=== PATIENT | male | born 1995 | race Caucasian/White ===

== ENCOUNTER 2018-10-09 09:34 | Emergency (ER) | payer OTHER ==
[~2018-10-09] VITALS: Ht 182.9 cm; Wt 67.1 kg
[2018-10-09 09:41] VITALS: BP 123/64
--- NOTE | 2018-10-09 09:48 | NUR ---
Patient ambulated to bed 2. RN evaluating patient at bedside.
--- NOTE | 2018-10-09 09:56 | NUR ---
BIB SELF. C/O RASH TO LEFT FOREARM X 2 DAYS. PT STATES TENDER TO TOUCH 5/10. LEFT FOREARM WARM TO TOUCH. AFEBRILE AT THIS TIME. PT DENIES SOB. NO MEDS TAKEN AT HOME. ER MD TO SEE THE PT. PMH: DENIES MED RX: DENIES ALLERGIES: AZITHROMAX
--- NOTE | 2018-10-09 10:59 | NUR ---
Dr. Anderson is evaluating the patient at bedside.
[2018-10-09] MEDS ORDERED: DEXAMETHASONE 10 MG/ML VIAL IM ONE (11:05)
[2018-10-09] MEDS ORDERED: CLINDAMYCIN 600 MG/4 ML VIAL IM ONE (11:05)
[2018-10-09 12:30] VITALS: BP 120/62
--- NOTE | 2018-10-09 12:30 | NUR ---
Patient discharged with v/s stable. Written and verbal after care instructions given and explained. Patient alert, oriented and verbalized understanding of instructions. Ambulatory with steady gait. All questions addressed prior to discharge. ID band removed. Patient advised to follow up with PMD. Rx of DOXYCLINE, BACTRIM DS TAB, BACTROBAN 2% TOPICAL CREAM given. Patient educated on indication of medication including possible reaction and side effects. Opportunity to ask questions provided and answered.
== END 2018-10-09 12:30 | disposition home or self-care (01) ==
LOC: MED 09:34
DX: L01.02 Bockhart's impetigo (principal)
CPT/HCPCS: 96372; 99283; J1100; J3490

== ENCOUNTER 2019-09-09 07:08 | Outpatient (CLI) | payer OTHER ==
[2019-09-09 09:56] LABS: ALBUMIN 4.2 g/dL (3.4-5.0); CARBON DIOXIDE 27.3 mmol/L (21-32); CHOL/HDL RATIO 4.7 (1-4.5); POTASSIUM 4.3 mmol/L (3.5-5.1); TOTAL BILIRUBIN 0.8 mg/dL (0.0-1.0)
== END 2019-09-09 20:01 | disposition home or self-care (01) ==
LOC: MLB 07:08
PROVIDERS: ATTEND Family Medicine
DX: Z13.89 Encounter for screening for other disorder (principal)
CPT/HCPCS: 36415; 80053

== ENCOUNTER 2020-01-01 21:17 | Emergency (ER) | payer OTHER ==
[~2020-01-01] VITALS: Ht 182.9 cm; Wt 72.6 kg
--- NOTE | 2020-01-01 21:27 | NUR ---
PT TAKEN TO BED 6
[2020-01-01 21:31] VITALS: BP 132/78
--- NOTE | 2020-01-01 21:34 | NUR ---
PT LAC ON RIGHT HAND BEING SOAKED WITH WARM WATER AND BETADINE ERMMono AND RN NOTIFIED.
[2020-01-01] MEDS ORDERED: LIDOCAINE 2% 1000 MG/50 ML VIAL INJ ONE (21:40)
--- NOTE | 2020-01-01 21:45 | NUR ---
PT WAS WASHING DISHES BROKE A GLASS CAUSING A LAC, APPROX 2 CM LONG, TO TOP OF R HAND. SOME BLEEDING NOTED AT THIS TIME. PT ABLE TO MOVE FINGERS. CURRENTLY DENIES ANY PAIN. BED IN LOWEST POSITION AND SIDERAIL UP X 1. ALLERGIES - ZITHROMYCIN NO HX
--- NOTE | 2020-01-01 21:53 | NUR ---
LAC SET-UP AT BEDSIDE
--- NOTE | 2020-01-01 22:45 | NUR ---
Dr. Hughes examining patient.
[2020-01-01] MEDS ORDERED: BACITRACIN OINT 500 UNITS/GM PKT TP ONE (23:00)
[2020-01-01 23:14] VITALS: BP 132/78
--- NOTE | 2020-01-01 23:17 | NUR ---
Patient discharged with v/s stable. Written and verbal after care instructions given and explained. Patient verbalized understanding. Ambulatory with steady gait. All questions addressed prior to discharge. Advised to follow up with PMD.
== END 2020-01-01 23:17 | disposition home or self-care (01) ==
LOC: MED 21:17
DX: S61.214A Laceration without foreign body of right ring finger without damage to nail, initial encounter (principal); R03.0 Elevated blood-pressure reading, without diagnosis of hypertension; W25.XXXA Contact with sharp glass, initial encounter; Y93.89 Activity, other specified; Y92.89 Other specified places as the place of occurrence of the external cause; Y99.8 Other external cause status
CPT/HCPCS: 12002; 90471; 90715; 99283; J2001

== ENCOUNTER 2020-01-08 09:40 | Emergency (ER) | payer OTHER ==
[~2020-01-08] VITALS: Ht 182.9 cm; Wt 72.6 kg
[2020-01-08 09:45] VITALS: BP 117/67
[2020-01-08 10:08] VITALS: BP 113/65
== END 2020-01-08 10:08 | disposition home or self-care (01) ==
LOC: MED 09:40
DX: S61.411D Laceration without foreign body of right hand, subsequent encounter (principal); Z88.1 Allergy status to other antibiotic agents; X58.XXXD Exposure to other specified factors, subsequent encounter
CPT/HCPCS: 99281

== ENCOUNTER 2020-09-11 08:22 | Outpatient (CLI) | payer OTHER ==
[2020-09-11 08:39] LABS: BASOPHILS % (AUTO) 0.9 % (0.0-2.0); EOSINOPHILS # (AUTO) 0.2 K/uL (0-0.4); EOSINOPHILS % (AUTO) 4.1 % (0.0-4.0); HEMATOCRIT 44.9 % (36-52); HEMOGLOBIN 15.5 g/dL (12.0-18.0); LYMPHOCYTES # (AUTO) 1.8 K/uL (2.0-11.5); LYMPHOCYTES % (AUTO) 36.5 % (20.5-51.1); MEAN CORPUSCULAR HEMOGLOBIN 31 pg (27-31); MEAN CORPUSCULAR HGB CONC 34 g/dL (33-37); MEAN CORPUSCULAR VOLUME 88.4 fL (80-94); MONOCYTES # (AUTO) 0.4 K/uL (0.8-1.0); NEUTROPHILS # (AUTO) 2.6 K/uL (1.8-7.7); NEUTROPHILS % (AUTO) 51.5 % (42.2-75.2); PLATELET COUNT (AUTO) 215 K/uL (140-450); RED BLOOD CELL COUNT(AUTO) 5.08 MIL/uL (4.20-6.10); RED CELL DISTRIBUTION WIDTH 12.6 % (11.6-13.7)
[2020-09-11 09:01] LABS: ANION GAP 8.8 (8-16); CARBON DIOXIDE 29.6 mmol/L (21-32); CHOL/HDL RATIO 4.3 (1-4.5); CREATININE 0.9 mg/dL (0.6-1.3); POTASSIUM 4.4 mmol/L (3.5-5.1); THYROID STIMULATING HORMONE 1.03 uIU/mL (0.34-3.74); TOTAL BILIRUBIN 0.5 mg/dL (0.0-1.0)
== END 2020-09-11 20:58 | disposition home or self-care (01) ==
LOC: MLB 08:22
PROVIDERS: ATTEND Family Medicine
DX: E78.5 Hyperlipidemia, unspecified (principal)
CPT/HCPCS: 36415; 80053; 84443; 85025

== ENCOUNTER 2020-12-17 16:22 | Emergency (ER) | payer OTHER ==
[~2020-12-17] VITALS: Ht 182.9 cm; Wt 71.7 kg
[2020-12-17 16:32] VITALS: BP 120/69
--- NOTE | 2020-12-17 16:39 | NUR ---
Tyler urias in [facility] - 12/17/20 at 1640 by MED1 PATY
--- NOTE | 2020-12-17 16:40 | NUR ---
Tyler urias in [facility] - 12/17/20 at 1733 by MED1 PT AMB TO BED 8
[2020-12-17] MEDS ORDERED: IBUPROFEN 600 MG TAB PO ONE (17:20)
[2020-12-17] MEDS ORDERED: LIDOCAINE MPF 1% 10 MG/ML VIAL INJ ONE ×2 (17:20→18:55)
[2020-12-17] MEDS ORDERED: IBUPROFEN 600 MG TAB ONE (18:51)
[2020-12-17] MEDS ORDERED: LIDOCAINE MPF 1% 5 ML ONE (18:52)
--- NOTE | 2020-12-17 18:55 | NUR ---
PA REYES BEDSIDE
--- NOTE | 2020-12-17 18:57 | NUR ---
25/M PRESENTS TO ED WITH C/O LEFT BIG TOE PAIN. PATIENT STATES FOR 8 DAYS PAIN HAS BEEN WORSENING WITH AMBULATION AND TOUCH. REPORTS 7/10 THROBBING PAIN, NONRADIATING. PATIENT ABLE TO AMBULATE WITHOUT ASSISTANCE, DENIES FEVER OR CHILLS.
--- NOTE | 2020-12-17 19:16 | NUR ---
Pt report given to CLAUDIA VIDALES. Transfer of care at this time.
[2020-12-17] MEDS ORDERED: CEPH-588 PO (19:28)
[2020-12-17] MEDS ORDERED: IBUP-2213 PO (19:28)
[2020-12-17] MEDS ORDERED: BACI1PAC6 TP (19:28)
[2020-12-17 19:46] VITALS: BP 120/69
--- NOTE | 2020-12-17 19:46 | NUR ---
Patient discharged with v/s stable. Written and verbal after care instructions given and explained. Patient alert, oriented and verbalized understanding of instructions. Ambulatory with steady gait. All questions addressed prior to discharge. ID band removed. Patient advised to follow up with PMD. Rx of KEFLEX, BACITRACIN, AND IBUPROFEN given. Patient educated on indication of medication including possible reaction and side effects. Opportunity to ask questions provided and answered.
== END 2020-12-17 19:46 | disposition home or self-care (01) ==
LOC: MED 16:22
DX: L60.0 Ingrowing nail (principal); Z88.1 Allergy status to other antibiotic agents; Z79.899 Other long term (current) drug therapy
CPT/HCPCS: 11730; 99284; J2001